=== PATIENT | male | born 1960 | race Caucasian/White ===

== ENCOUNTER → 2023-12-26 17:50 | Outpatient (REF) | payer OTHER, SELFPAY | LOC: RAD 17:50 | PROVIDERS: ATTENDING PHYSICIAN Family Medicine | DX: M48.061 Spinal stenosis, lumbar region without neurogenic claudication (principal) | CPT/HCPCS: 72110 ==

== ENCOUNTER → 2024-02-11 07:01 | Outpatient (REF) | payer OTHER, SELFPAY | LOC: MRI 07:01 | PROVIDERS: ATTENDING PHYSICIAN Physical Medicine & Rehabilitation; FAMILY PHYSICIAN Family Medicine | DX: M54.16 Radiculopathy, lumbar region (principal) | CPT/HCPCS: 72148 ==

== ENCOUNTER 2024-03-28 18:02 | Outpatient (RCR) | payer OTHER, SELFPAY | END 2024-03-28 23:59 | disposition home or self-care (01) | LOC: RPT 18:02 | PROVIDERS: ATTENDING PHYSICIAN Physical Medicine & Rehabilitation; FAMILY PHYSICIAN Family Medicine | DX: M51.36 Other intervertebral disc degeneration, lumbar region (principal); M54.16 Radiculopathy, lumbar region; M48.061 Spinal stenosis, lumbar region without neurogenic claudication; M25.561 Pain in right knee; Z73.6 Limitation of activities due to disability; R26.2 Difficulty in walking, not elsewhere classified | CPT/HCPCS: 97110; 97112; 97140; 97162 ==

== ENCOUNTER → 2024-05-22 18:01 | Outpatient (REF) | payer OTHER, SELFPAY | LOC: RAD 18:01 | PROVIDERS: ATTENDING PHYSICIAN Nurse Practitioner Family; FAMILY PHYSICIAN Family Medicine; REFERRING PHYSICIAN Physical Medicine & Rehabilitation | DX: M25.511 Pain in right shoulder (principal) | CPT/HCPCS: 73030 ==

== ENCOUNTER 2024-10-02 15:50 | Outpatient (RCR) | payer OTHER, SELFPAY | END 2024-10-02 23:59 | disposition home or self-care (01) | LOC: RPT 15:50 | PROVIDERS: ATTENDING PHYSICIAN Orthopaedic Surgery; FAMILY PHYSICIAN Family Medicine | DX: M75.41 Impingement syndrome of right shoulder (principal); Z73.6 Limitation of activities due to disability; M62.81 Muscle weakness (generalized) | CPT/HCPCS: 97110; 97140; 97162; 97535 ==

== ENCOUNTER 2024-10-08 18:52 | Outpatient (RCR) | payer OTHER, SELFPAY | END 2024-10-08 23:59 | disposition home or self-care (01) | LOC: RPT 18:52 | PROVIDERS: ATTENDING PHYSICIAN Orthopaedic Surgery; FAMILY PHYSICIAN Family Medicine | DX: M75.41 Impingement syndrome of right shoulder (principal); Z73.6 Limitation of activities due to disability; M62.81 Muscle weakness (generalized) | CPT/HCPCS: 97110 ==

== ENCOUNTER → 2024-11-05 08:15 | Outpatient (REF) | payer OTHER, SELFPAY | LOC: PAVMRI 08:15 | PROVIDERS: ATTENDING PHYSICIAN Orthopaedic Surgery; FAMILY PHYSICIAN Family Medicine | DX: M75.41 Impingement syndrome of right shoulder (principal) | CPT/HCPCS: 73221 ==